=== PATIENT | female | born 1965 | race Caucasian/White ===

== ENCOUNTER 2016-11-18 16:45 | Emergency (ER) | payer OTHER ==
[~2016-11-18] VITALS: Ht 165.1 cm; Wt 79.0 kg
[2016-11-18 16:48] VITALS: Ht 165.1 cm; Wt 79.0 kg
--- NOTE | 2016-11-18 17:59 | RADRPT ---
PROCEDURE: XR Tibia and Fibula. CLINICAL INDICATION: Left jean baptiste pain and swelling, status post fall. TECHNIQUE: Two views of the left tibia and fibula are available for review. COMPARISON: None available FINDINGS: Distal fibula is not well seen on the AP view. No acute fracture or dislocation is seen. No radiopaque foreign body is identified. Mild anterior lower leg soft tissue swelling is noted. IMPRESSION: 1. No acute fracture or dislocation. 2. Mild anterior lower leg soft tissue swelling. RPTAT: HH .Nelda Medrano MD, Date Time Electronically viewed and signed by .Nelda Medrano MD, on 11/18/2016 17:59 .N/
[2016-11-18] MEDS ORDERED: IBUP-1542 PO (18:06)
--- NOTE | 2016-11-18 18:06 | ERD ---
ER Documentation Chief Complaint Date/Time DATE: 11/18/16 Chief Complaint Left jean baptiste pain and swelling s/p trip and fall HPI The patient is a 51-year-old female who presents to the Emergency Department with complaint of swelling and minimal pain to the lower regions of the left jean baptiste. The patient reports that two weeks ago she tripped over some toys laying by the stairs, and fell down two stairs, hitting the left pretibial region against the edge of the stair. Since, she has developed swelling and ecchymosis to the region. She went to see her primary medical provider today, who referred the patient to the ED for x-ray imaging to rule out any underlying fracture. The patient reports no pain at this time, though does state that she sometimes experiences minimal pain with palpation of the affected region. She denies any numbness, paresthesias or weakness of the distal extremity. Denies any restricted range of motion. Denies any calf swelling or calf tenderness. Denies any other injuries during the fall, including no head or neck injury/ trauma, and no loss of consciousness. She rates her current pain as 0/10. ROS All systems reviewed and are negative except as per history of present illness. Medications Home Meds Active Scripts Ibuprofen* (Motrin*) 600 Mg Tab, 600 MG PO Q6, #30 TAB Prov:KAYLEEN DOHERTY PA-C 11/18/16 Allergies Allergies: Coded Allergies: No Known Allergy (Unverified , 08/16/13) PMhx/Soc Hx Alcohol Use: No Hx Substance Use: No Hx Tobacco Use: No Physical Exam Vitals Vital Signs Date Time Temp Pulse Resp B/P Pulse Ox O2 Delivery O2 Flow Rate FiO2 11/18/16 16:48 97.3 102 18 144/61 98 Physical Exam Const: Well-developed, well-nourished, in no acute distress. Head: Atraumatic Eyes: Normal Conjunctiva ENT: Normal External Ears, Nose and Mouth. Neck: Supple. Resp: Clear to auscultation bilaterally Cardio: Regular rate and rhythm Skin: Ecchymosis to left pretibial region. No lacerations or abrasions. Ext: No clubbing or cyanosis. There is swelling to the anterior left lower leg with overlying ecchymosis. No significant tenderness to palpation. No crepitus. No gross deformities. Normal range of motion of the proximal and distal extremity. Distal pulses 2+. Capillary refill is less than 2 seconds. Compartments are soft. No calf swelling or calf tenderness. Negative Lesley's sign. 5/5 strength lower extremities bilaterally. No foot drop. Neur: Awake and alert. Motor and sensation grossly intact. Gait is observed and normal, no ataxia. Psych: Normal Mood and Affect Procedures/MDM DIAGNOSTIC TESTS AND INTERPRETATION: PROCEDURE: XR Tibia and Fibula. CLINICAL INDICATION: Left jean baptiste pain and swelling, status post fall. TECHNIQUE: Two views of the left tibia and fibula are available for review. COMPARISON: None available FINDINGS: Distal fibula is not well seen on the AP view. No acute fracture or dislocation is seen. No radiopaque foreign body is identified. Mild anterior lower leg soft tissue swelling is noted. IMPRESSION: 1. No acute fracture or dislocation. 2. Mild anterior lower leg soft tissue swelling. .Nelda Medrano MD, MD Date Time Electronically viewed and signed by .Nelda Medrano MD, MD on 11/18/2016 17: 59 MEDICAL DECISION MAKING: This is a 51-year-old female presenting to the Emergency Department with swelling and ecchymosis to the left lower anterior jean baptiste/leg/pretibial region that began two weeks ago after trip and fall down 2 stairs. She had no other significant abnormalities noted. No pain out of proportion to examination. No pulselessness, pallor, paresis, paresthesias. Compartments are soft, with no evidence of compartment syndrome. No restricted range of motion. Distal extremity neurovascularly intact. No calf swelling or tenderness, clinically no evidence of DVT. X-ray imaging was performed, with no evidence of fracture, dislocation, subluxation. Rather, mild anterior lower leg soft tissue swelling was noted. Given mechanism of injury and patient presentation, I believe her presentation to be most consistent with contusion. At this time the patient is in stable condition and therefore can be discharged home with a prescription for Ibuprofen and given strict return precautions for signs of acute deterioration of condition. The patient is instructed to follow up with her primary medical provider within 2-3 days for reevaluation and further management, or return to the ER sooner for any new or worsening symptoms. She is given a copy of her results, and instructed on rest, icing and elevating the extremity. I shared my medical decision making and plan with the patient at length and in great detail and the patient verbally understands and agrees with the plan for further observation and care as an outpatient. At the time of discharge all questions were answered. Departure Diagnosis: Primary Impression: Contusion of left lower leg Encounter type: initial encounter Qualified Code: S80.12XA - Contusion of left lower leg, initial encounter Condition: Stable Patient Instructions: Contusion, Lower Extremity, R.I.C.E. Additional Instructions: Follow up with your primary medical provider in 2-3 days for reevaluation and further management. Return to the ED sooner for any new or worsening symptoms. KAYLEEN DOHERTY PA-C Nov 18, 2016 18:05
== END 2016-11-19 09:29 | disposition home or self-care (01) ==
LOC: FTE 16:45 → E/R 11-19 09:29
DX: S80.12XA Contusion of left lower leg, initial encounter (principal); W10.8XXA Fall (on) (from) other stairs and steps, initial encounter; Y92.9 Unspecified place or not applicable
CPT/HCPCS: 73590; Z7502

== ENCOUNTER 2019-05-17 11:51 | Day surgery (SDC) | payer OTHER ==
[2019-05-17] VITALS (13 sets, daily range): BP systolic 109–128; BP diastolic 57–74; PULSE 68–102; RESP 11–19
[~2019-05-17] VITALS: Ht 182.9 cm; Wt 87.0 kg
[~2019-05-17 11:51] MED LIST: CEFAZOLIN 2 GM/50 ML (PMX) 50 ML IVPB SCH; IBUP-1542 PO; LACTATED RINGER'S 1,000 ML IV SCH
--- NOTE | 2019-05-17 13:12 | PREAC ---
Date/Time of Note Date/Time of Note DATE: 05/17/19 TIME: 13:09 Anesthesia Eval and Record Evaluation Time Pre-Procedure Interview DATE: 05/17/19 TIME: 13:09 Age 53 Sex female NPO: 8 hrs Preoperative diagnosis Left foot calcaneal spur Planned procedure Left foot partial removal of calcaneal spur, partial release of plantar fascia Past Medical History Past Medical History: None Surgery & Anesthesia Issues No known issue Meds Anticoagulation: No Beta Flower within 24 hr: No Reason Beta Flower not given: Pt. not on B-Flower Discontinued Scripts Ibuprofen* (Motrin*) 600 Mg Tab, 600 MG PO Q6, #30 TAB Prov:KAYLEEN DOHERTY PA-C 11/18/16 Current Medications Lactated Ringer's 1,000 ml @ 25 mls/hr Q24H IV ; Start 05/17/19 at 06:00; Stop 05/18/19 at 21:59 Cefazolin Sodium/ Dextrose 50 ml @ 100 mls/hr PREOP IVPB ; Start 05/17/19 at 06:00; Stop 05/17/19 at 19:00 Meds reviewed: Yes Allergies Coded Allergies: No Known Allergy (Unverified , 05/17/19) Allergies Reviewed: Yes Labs/Studies Labs Reviewed: Reviewed by anesthesiologist test: Negative Pre-procedure Exam Last vitals Vital Signs Date Temp Pulse Resp B/P (MAP) Pulse Ox O2 O2 Flow FiO2 Time Delivery Rate 05/17/19 97.4 79 16 126/72 97 Room Air 12:43 (90) Airway: Adequate mouth opening Mallampati: Mallampati I Teeth: Normal Lung: Normal Heart: Normal ASA Physical Status ASA physical status: 1 Emergency: None Planned Anesthetic General/MAC: LMA Planned Pain Management Parenteral pain med Pre-operative Attestations Prior to commencing anesthesia and surgery, the patient was re-evaluated, there was verification of: *The patient's identity *The results of appropriate recent lab work and preoperative vital signs *The above evaluation not changing prior to induction *Anesthetic plan, risk benefits, alternative and complications discussed with patient/family; questions answered; patient/family understands, accepts and wishes to proceed. DERREK ERNST MD May 17, 2019 13:12
[2019-05-17] MEDS ORDERED: TRIAMCINOLONE ACET 40 MG/ML INJ ONE (13:36)
[2019-05-17] MEDS ORDERED: BUPIVACAINE 0.5% (SDV) 30 ML INJ ONE (13:36)
[2019-05-17] MEDS ORDERED: POLYMYXIN/BACITRACIN 1L IRRIG ONE (13:36)
--- NOTE | 2019-05-17 13:47 | HPN ---
Date/Time of Note Date/Time of Note DATE: 05/17/19 TIME: 13:46 Interval H&P Admission Note Pt. seen H&P reviewed: No system changes TINO THOMAS DPM May 17, 2019 13:47
[2019-05-17] MEDS ORDERED: METOCLOPRAMIDE 10 MG INJ ONE (13:55)
[2019-05-17] MEDS ORDERED: CEFAZOLIN 1 GM INJ ONE (13:55)
[2019-05-17] MEDS ORDERED: LIDOCAINE 2% (SDV) 5 ML INJ ONE (13:55)
[2019-05-17] MEDS ORDERED: PROPOFOL 20 ML ONE (13:55)
[2019-05-17] MEDS ORDERED: ONDANSETRON 4 MG INJ ONE (13:55)
[2019-05-17] MEDS ORDERED: MEPERIDINE 100 MG INJ ONE (14:15)
--- NOTE | 2019-05-17 14:53 | SIPON ---
Date/Time of Note Date/Time of Note DATE: 05/17/19 TIME: 14:52 Operative Report Preoperative Diagnosis Left foot, Calcneal spur with plantar fasciitis. Postoperative Diagnosis same Operation/Procedure Performed Partial removal of calcneal spur with partial release of the plantar fascia. Surgeon see signature line certified anesthesiologist assistant none. Anesthesia: general Estimated blood loss: minimal Transfusion Required none Specimen soft tissue. Grafts/Implants none Complications none TINO THOMAS DPM May 17, 2019 14:53
[2019-05-17] MEDS ORDERED: DIPHENHYDRAMINE 50 MG INJ IV PRN (15:00)
[2019-05-17] MEDS ORDERED: METOCLOPRAMIDE 10 MG INJ IV PRN (15:00)
[2019-05-17] MEDS ORDERED: MIDAZOLAM 1 MG/ML 2 ML INJ IV PRN (15:00)
[2019-05-17] MEDS ORDERED: OXYCODONE/ACETAMINOPHEN (5/325) TAB PO PRN ×2 (15:00)
[2019-05-17] MEDS ORDERED: MEPERIDINE 25 MG INJ IV PRN (15:00)
[2019-05-17] MEDS ORDERED: ONDANSETRON (ODT) 4 MG TAB ODT PRN (15:00)
[2019-05-17] MEDS ORDERED: FENTAnyl 50 MCG/ML VIAL IV PRN ×3 (15:00)
[2019-05-17] MEDS ORDERED: ONDANSETRON 4 MG INJ IV PRN (15:00)
[2019-05-17] MEDS ORDERED: HYDROCODONE/APAP (10/325) TAB PO PRN (15:00)
--- NOTE | 2019-05-17 18:14 | OPR ---
DATE OF OPERATION: 05/17/2019 PREOPERATIVE DIAGNOSIS: Calcaneal spur and plantar fasciitis of the left foot. POSTOPERATIVE DIAGNOSIS: Calcaneal spur and plantar fasciitis of the left foot. PROCEDURE: Partial removal of calcaneal spur and partial plantar fascia release. ANESTHESIA: General. OPERATION IN DETAILS: The patient was brought in the OR and approximately 10 mL of 0.5% plain Marcai ne was used circumferentially around the calcaneal region of the left foot. After anesthesia was ach ieved, the area was prepped and draped in the usual sterile fashion. Tourniquet was applied and Loida rch was utilized to exsanguinate the foot and ankle and the tourniquet was elevated to 250 mmHg. Att ention was then directed to the medial aspect of the left foot calcaneal region. Utilizing a #15 kevin de, approximately 3 cm incision was performed. Sharp and blunt dissection were achieved. All bleedi ng vessels were ligated. Nervous tissue was retracted. As sharp and blunt dissection continued, the re was some yellowish cyst type lesions that were removed and sent to pathology for gross analysis. Sharp and blunt dissection were continued down to the medial slip of the plantar fascia. At this poi nt, small Metzenbaum scissors were utilized to partially release the medial slip of the plantar fasci a. This exposed the medial tuberosity and the calcaneal spur in the region. After identifying the c alcaneus spur, reciprocating rasp was utilized to partially reduce down the calcaneal spur. The foot was pronated to maximally pronate and the release was complete. The area was then copiously lavaged with antibiotic solution. The surgical site was then coapted with 2-0 and 3-0 Vicryl suture and nyl on suture for the skin. A 1 mL of Kenalog 40 was utilized at the end of the case as was 6 mL of 0.5% plain Marcaine into the calcaneal region. Dressing of 4 x 4's, rolled gauze and Lucy and Coban was applied as well as an Abdullahi wrap. Tourniquet was released and normoactive hyperemia was noted to all the digits of the left foot. This patient tolerated the procedure well and left the OR in stable con dition. There was minimal blood loss and there were no intraoperative complications. Dictated By: TINO THOMAS MD RS/NTS Conf#: [id number] [facility]#: [id number]
--- NOTE | 2019-05-17 18:22 | PAC ---
Date/Time of Note Date/Time of Note DATE: 05/17/19 TIME: 18:21 Post-Anesthesia Notes Post-Anesthesia Note Last documented vital signs Vital Signs Date Temp Pulse Resp B/P (MAP) Pulse Ox O2 O2 Flow FiO2 Time Delivery Rate 05/17/19 97.7 77 18 128/63 99 Room Air 17:14 (84) Activity: WNL Respiratory function: WNL Cardiovascular function: WNL Mental status: Baseline Pain reasonably controlled: Yes Hydration appropriate: Yes Nausea/Vomiting absent: Yes DERREK ERNST MD May 17, 2019 18:22
== END 2019-05-17 16:40 | disposition home or self-care (01) ==
LOC: SDS 11:51
PROVIDERS: ATTEND Podiatrist Foot & Ankle Surgery
DX: M77.32 Calcaneal spur, left foot (principal); M72.2 Plantar fascial fibromatosis
CPT/HCPCS: 28119; 88304; J0690; J2175; J2405; J2765; Z7512; Z7610